=== PATIENT | female | born 1975 | race Caucasian/White ===

== ENCOUNTER 2016-11-11 10:25 | Day surgery (SDC) | payer BC ==
[2016-11-08 13:31] VITALS: BMI 27.4
--- NOTE | 2016-11-11 08:03 | P.GSHP ---
History of Present Illness H&P Date: 11/11/16 Chief Complaint: Right upper quadrant pain This is a 32-year-old female who presents today for laparoscopic cholecystectomy. She's had complaints of right quadrant pain. She is found have evidence of cholelithiasis. - Constitutional Constitutional: Reports as per HPI Past Medical History Past Medical History: No Reported History History of Any Multi-Drug Resistant Organisms: None Reported Past Surgical History: Orthopedic Surgery Additional Past Surgical History / Comment(s): Broke right leg, has titanium caitlyn and 3 screws in it. Past Anesthesia/Blood Transfusion Reactions: No Reported Reaction Past Psychological History: No Psychological Hx Reported Smoking Status: Current every day smoker Past Alcohol Use History: Occasional Additional Past Alcohol Use History / Comment(s): Has been smoking 1 PPD for last 15 yrs. Past Drug Use History: None Reported - Past Family History Mother Family Medical History: No Reported History Medications and Allergies Home Medications Medication Instructions Recorded Confirmed Type No Known Home Medications [No 08/09/15 11/08/16 History Known Home Medications] Allergies Allergy/AdvReac Type Severity Reaction Status Date / Time No Known Allergies Allergy Verified 11/08/16 13:19 Surgical - Exam - General well developed, no distress - Eyes PERRL - ENT normal pinna - Neck no masses - Respiratory normal expansion - Cardiovascular Rhythm: regular - Abdomen Abdomen: soft, non tender Assessment and Plan Plan: Right quadrant pain Cholelithiasis Chronic cholecystectomy. We'll perform laparoscopic cholecystectomy
[~2016-11-11 10:25] MED LIST: DEXAMETHASONE SOD PHOSPHATE 10 MG/ML 1 ML VIAL IV ONE; HEPARIN SODIUM,PORCINE 5,000 UNIT/ML 1 ML VIAL SQ ONE; LACTATED RINGERS 1,000 ML IV SCH; MIDAZOLAM 2 MG/2 ML VIAL IV PRN; SCOPOLAMINE 1.5MG/72HR PATCH TRANSDERM ONE; ceFAZolin 2 GM in SODIUM CHLORIDE 0.9% 100 ML IVPB ONE
[2016-11-11 10:48] VITALS: RESP 16
[2016-11-11] MEDS ORDERED: LIDOCAINE 1% 20 ML VIAL (10MG/ML) FOR IV START INTRADERMA ONE (10:58)
[2016-11-11] MEDS: ONDANSETRON 4 MG/2 ML VIAL IVP ONE ×2 (11:02→13:01)
[2016-11-11] MEDS ORDERED: SUCCINYLCHOLINE CHLORIDE 100 MG/5 ML SYR IV ONE (11:31)
[2016-11-11] MEDS ORDERED: DEXAMETHASONE SOD PHOS (MDV) 100 MG/10 ML VIAL ONE (11:31)
[2016-11-11] MEDS ORDERED: fentaNYL (PF) 50 MCG/ML 2 ML AMP ONE (11:31)
[2016-11-11] MEDS ORDERED: PROPOFOL 10 MG/ML 20 ML VIAL IV ONE (11:31)
[2016-11-11] MEDS ORDERED: MIDAZOLAM 2 MG/2 ML VIAL ONE (11:31)
[2016-11-11] MEDS ORDERED: ROCURONIUM BROMIDE 10 MG/ML 10 ML VIAL IV ONE (11:31)
[2016-11-11] MEDS ORDERED: NEOSTIGMINE 1 MG/ML 10 ML VIAL ONE (11:31)
[2016-11-11] MEDS ORDERED: GLYCOPYRROLATE 0.2 MG/ML 2 ML VIAL ONE (11:31)
[2016-11-11] MEDS ORDERED: LIDOCAINE 1% INJ 10MG/ML (20 ML MDV) ONE (11:31)
[2016-11-11] MEDS ORDERED: BUPIVACAIN-EPI 0.25%-1:200,000 30 ML VIAL IJ ONE (11:41)
--- NOTE | 2016-11-11 12:34 | P.OP ---
Date of Procedure: 11/11/16 Preoperative Diagnosis: Cholecystitis Cholelithiasis Postoperative Diagnosis: Cholelithiasis Acute and chronic cholecystitis Procedure(s) Performed: Laparoscopic cholecystectomy Anesthesia: IBETH Surgeon: Mansoor Dill Estimated Blood Loss (ml): 5 Pathology: other (Gallbladder) Condition: stable Disposition: PACU Description of Procedure: The patient was placed on the operating table. The patient received a general endotracheal tube anesthesia. The patients abdomen was prepped and draped in the usual sterile fashion. Through an infraumbilical stab incision, the fascia of the anterior abdominal wall was grasped with a pair of Kochers and then the Veress needle was placed in the peritoneal cavity. Position of the Veress needle was confirmed with positive drop test. The abdomen was then insufflated. After adequate insufflation, the 10 mm trocar was placed in the peritoneal cavity. Following this the laparoscope was placed in the peritoneal cavity. The patient was placed in the head-up, right side up position and then a 5 mm trocar was placed in the right lateral and right subcostal position under direct visualization. A 8 mm trocar was placed in the epigastric position. The gallbladder was grasped in the fundus and infundibulum. Traction on the gallbladder was placed in the lateral and the cephalad positions. The gallbladder appeared to be chronically inflamed. There were stones seen within the gallbladder. The triangle of Calot was visualized.. The cystic duct was bluntly dissected until the union of the cystic duct and common bile duct was seen. The cystic duct was then divided and sealed with the Harmonic scissors. A PDS Endoloop was then placed throughout the cystic duct stump. The cystic artery divided and sealed with the Harmonic scissors. The gallbladder was then removed from the liver bed using Harmonic scissors. The gallbladder was then extracted through the epigastric port site. Operative field was checked for any bleeding spots and Harmonic scissors was used to coagulate the liver bed. The abdomen was irrigated. The trocars were removed. The skin was closed using interrupted 3- 0 Vicryl suture. Dermabond dressing were applied. The patient tolerated the procedure well.
[2016-11-11 12:40] VITALS: TEMP 97
[2016-11-11] MEDS ORDERED: KETOROLAC 30 MG/ML 1 ML VIAL IVP ONE (12:49)
[2016-11-11] MEDS: HYDROmorphone 1 MG/ML 1 ML SYRINGE IVP PRN ×2 (13:01→13:07)
[2016-11-11 15:01] VITALS: BP 141/85; PULSE 95
== END 2016-11-11 14:58 | disposition home or self-care (01) ==
LOC: OR 10:25
PROVIDERS: ATTEND Surgery
DX: K80.10 Calculus of gallbladder with chronic cholecystitis without obstruction (principal); F17.200 Nicotine dependence, unspecified, uncomplicated
CPT/HCPCS: 81025; 88304; 47562; J2250; J1644; J1100 ×2; J2710; J0690; J2405; J2001; J3010; J1885; J1170; J0330; J2704

== ENCOUNTER 2016-11-16 19:07 | Emergency (ER) | payer BC ==
[2016-11-16 19:12] VITALS: RESP 18
--- NOTE | 2016-11-16 19:27 | ED ---
General Adult HPI - General Chief complaint: Abdominal Pain Stated complaint: Abd Pain - Post Op 5 days Time Seen by Provider: 11/16/16 19:13 Source: patient, RN notes reviewed Mode of arrival: ambulatory Limitations: no limitations - History of Present Illness Initial comments: This is a 41-year-old female is postoperative day 5 from laparoscopic cholecystectomy. Patient states she was not having any pain until today around 1 PM. Patient states she took omeprazole and a Poyen but the pain did not subside. Patient states that the pain is steadt and that is worse when she sits up. Patient states laying flat helps the pain. Patient states the pain is also in her back. Patient denies any dysuria, hematuria, hematochezia. Patient denies any shortness of breath. Patient states she's been having normal bowel movements and her last bowel movement was this morning. Patient denies any fever/chills, nausea/vomiting or diarrhea. Patient denies any recent fever, chills, shortness breath, chest pain, back pain, numbness, tingling, hematuria, headache, or visual changes, or any other complaints. - Related Data Home Medications Medication Instructions Recorded Confirmed HYDROcodone/APAP 7.5-325MG [Poyen 1 tab PO Q4H PRN 11/16/16 11/16/16 7.5] Omeprazole 40 mg PO DAILY 11/16/16 11/16/16 Allergies Allergy/AdvReac Type Severity Reaction Status Date / Time No Known Allergies Allergy Verified 11/16/16 19:32 Review of Systems ROS Statement: Those systems with pertinent positive or pertinent negative responses have been documented in the HPI. ROS Other: All systems not noted in ROS Statement are negative. Past Medical History Past Medical History: No Reported History History of Any Multi-Drug Resistant Organisms: None Reported Past Surgical History: Cholecystectomy, Orthopedic Surgery Additional Past Surgical History / Comment(s): Broke right leg, has titanium caitlyn and 3 screws in it. Past Anesthesia/Blood Transfusion Reactions: No Reported Reaction Past Psychological History: No Psychological Hx Reported Smoking Status: Current every day smoker Past Alcohol Use History: Occasional Additional Past Alcohol Use History / Comment(s): Has been smoking 1 PPD for last 15 yrs. Past Drug Use History: None Reported - Past Family History Mother Family Medical History: No Reported History General Exam - General Exam Comments Initial Comments: General: The patient is awake and alert, in no distress, and does not appear acutely ill. Eye: Pupils are equal, round and reactive to light, extra-ocular movements are intact. No nystagmus. There is normal conjunctiva bilaterally. No signs of icterus. Ears: TMs pink and pearly with intact cone of light bilaterally. Normal external ear canals Nose: Nasal turbinates pink and moist Mouth and throat: There are moist mucous membranes and no oral lesions. Neck: The neck is supple, there is no tenderness or JVD. Cardiovascular: There is a regular rate and rhythm. No murmur, rub or gallop is appreciated. Respiratory: Lungs are clear to auscultation, respirations are non-labored, breath sounds are equal. No wheezes, stridor, rales, or rhonchi. Gastrointestinal: Patient has generalized tenderness to the epigastric area of the abdomen. No guarding or rebound tenderness. There are 4 healing incisions to the umbilicus and right upper abdomen from a laparoscopic cholecystectomy. No signs of infection and incisions are clean and dry and intact. Soft, non- distended, non-tender abdomen without masses or organomegaly noted. No CVA tenderness. Bowel sounds are unremarkable. Musculoskeletal: Normal ROM, no tenderness. Strength 5/5. Sensation intact. Pulses equal bilaterally 2+. Neurological: A&O x 3. CN II-XII intact, There are no obvious motor or sensory deficits. Coordination appears grossly intact. Speech is normal. Skin: 4 healing incisions that are clean dry and intact to the abdomen for laparoscopic cholecystectomy. Skin is warm and dry and no rashes are noted. Psychiatric: Cooperative, appropriate mood & affect, normal judgment. Limitations: no limitations Course Vital Signs 11/16/16 11/16/16 11/16/16 19:09 20:28 21:12 Temperature 97.5 F L 98.0 F Pulse Rate 105 H 78 92 Respiratory 18 18 18 Rate Blood Pressure 174/79 147/74 164/92 O2 Sat by Pulse 99 100 99 Oximetry 11/16/16 22:44 Temperature 97.6 F Pulse Rate 75 Respiratory 18 Rate Blood Pressure 152/84 O2 Sat by Pulse 98 Oximetry Medical Decision Making - Medical Decision Making This is a 41-year-old female who is postop day 5 from a lap lake. On physical exam patient is well-appearing and afebrile in the EC. Patient has generalized tenderness to the epigastric area of the abdomen. No guarding or rebound tenderness. There are 4 healing incisions to the umbilicus and right upper abdomen from a laparoscopic cholecystectomy. No signs of infection and incisions are clean and dry and intact. Soft, non-distended, non-tender abdomen without masses or organomegaly noted. No CVA tenderness. Bowel sounds are unremarkable. Basic labs were drawn and reviewed. UA was done. Some blood was noted in the urine and patient states she just finished her menstrual cycle. A KUB was done and reviewed showing: Focal atelectasis at the lung bases. Nonacute abdomen. Report by Dr. Crouch. At this time a CT of the abdomen and pelvis with oral and IV contrast was done and reviewed showing: Colonic diverticulosis without sign of diverticulitis. Patchy atelectasis at the posterior lung bases. Report by Dr. Crouch. I discussed the results with patient. I discussed continuation of her home pain medications. Patient states she has a follow-up appointment with her surgeon tomorrow. I discussed return parameters. Discussed that patient should follow up with PCP in one to 2 days or return to the EC for any worsening symptoms or for any further concerns. Patient was receptive to this plan and patient will be discharged home. I discussed this case with attending physician Dr. Renee who agrees the plan as stated above. - Lab Data Result diagrams: 11/16/16 19:45 11/16/16 19:45 Lab Results 11/16/16 11/16/16 11/16/16 Range/Units 19:45 19:45 19:45 WBC 6.8 (3.8-10.6) k/uL RBC 4.55 (3.80-5.40) m/uL Hgb 14.8 (11.4-16.0) gm/dL Hct 43.2 (34.0-46.0) % MCV 95.0 (80.0-100.0) fL MCH 32.5 (25.0-35.0) pg MCHC 34.2 (31.0-37.0) g/dL RDW 12.5 (11.5-15.5) % Plt Count 227 (150-450) k/uL Neutrophils % 61 % Lymphocytes % 27 % Monocytes % 4 % Eosinophils % 4 % Basophils % 0 % Neutrophils # 4.2 (1.3-7.7) k/uL Lymphocytes # 1.9 (1.0-4.8) k/uL Monocytes # 0.3 (0-1.0) k/uL Eosinophils # 0.3 (0-0.7) k/uL Basophils # 0.0 (0-0.2) k/uL Sodium 140 (137-145) mmol/L Potassium 3.9 (3.5-5.1) mmol/L Chloride 106 (98-107) mmol/L Carbon Dioxide 23 (22-30) mmol/L Anion Gap 11 mmol/L BUN 11 (7-17) mg/dL Creatinine 0.62 (0.52-1.04) mg/dL Est GFR (MDRD) Af Amer >60 (>60 ml/min/1.73 sqM) Est GFR (MDRD) Non-Af >60 (>60 ml/min/1.73 sqM) Glucose 100 H (74-99) mg/dL Plasma Lactic Acid Dereje 1.1 (0.7-2.0) mmol/L Calcium 9.6 (8.4-10.2) mg/dL Total Bilirubin 1.0 (0.2-1.3) mg/dL AST 322 H (14-36) U/L ALT 171 H (9-52) U/L Alkaline Phosphatase 184 H (38-126) U/L Total Protein 7.4 (6.3-8.2) g/dL Albumin 4.3 (3.5-5.0) g/dL Amylase 40 (30-110) U/L Lipase 125 (23-300) U/L Urine Color Urine Appearance (Clear) Urine pH (5.0-8.0) Ur Specific [place] (1.001-1.035) Urine Protein (Negative) Urine Glucose (UA) (Negative) Urine Ketones (Negative) Urine Blood (Negative) Urine Nitrite (Negative) Urine Bilirubin (Negative) Urine Urobilinogen (<2.0) mg/dL Ur Leukocyte Esterase (Negative) Urine RBC (0-5) /hpf Urine WBC (0-5) /hpf Ur Squamous Epith Cells (0-4) /hpf Urine Mucus (None) /hpf 11/16/16 Range/Units 19:45 WBC (3.8-10.6) k/uL RBC (3.80-5.40) m/uL Hgb (11.4-16.0) gm/dL Hct (34.0-46.0) % MCV (80.0-100.0) fL MCH (25.0-35.0) pg MCHC (31.0-37.0) g/dL RDW (11.5-15.5) % Plt Count (150-450) k/uL Neutrophils % % Lymphocytes % % Monocytes % % Eosinophils % % Basophils % % Neutrophils # (1.3-7.7) k/uL Lymphocytes # (1.0-4.8) k/uL Monocytes # (0-1.0) k/uL Eosinophils # (0-0.7) k/uL Basophils # (0-0.2) k/uL Sodium (137-145) mmol/L Potassium (3.5-5.1) mmol/L Chloride (98-107) mmol/L Carbon Dioxide (22-30) mmol/L Anion Gap mmol/L BUN (7-17) mg/dL Creatinine (0.52-1.04) mg/dL Est GFR (MDRD) Af Amer (>60 ml/min/1.73 sqM) Est GFR (MDRD) Non-Af (>60 ml/min/1.73 sqM) Glucose (74-99) mg/dL Plasma Lactic Acid Dereje (0.7-2.0) mmol/L Calcium (8.4-10.2) mg/dL Total Bilirubin (0.2-1.3) mg/dL AST (14-36) U/L ALT (9-52) U/L Alkaline Phosphatase (38-126) U/L Total Protein (6.3-8.2) g/dL Albumin (3.5-5.0) g/dL Amylase (30-110) U/L Lipase (23-300) U/L Urine Color Yellow Urine Appearance Cloudy H (Clear) Urine pH 6.5 (5.0-8.0) Ur Specific [place] 1.019 (1.001-1.035) Urine Protein Negative (Negative) Urine Glucose (UA) Negative (Negative) Urine Ketones Negative (Negative) Urine Blood Moderate H (Negative) Urine Nitrite Negative (Negative) Urine Bilirubin Negative (Negative) Urine Urobilinogen 4.0 (<2.0) mg/dL Ur Leukocyte Esterase Trace H (Negative) Urine RBC 28 H (0-5) /hpf Urine WBC 2 (0-5) /hpf Ur Squamous Epith Cells 7 H (0-4) /hpf Urine Mucus Rare H (None) /hpf Disposition Clinical Impression: History of laparoscopic cholecystectomy, Epigastric pain Disposition: HOME SELF-CARE Condition: Good Instructions: Epigastric Pain (ED) Additional Instructions: Please continue your pain medications. Please continue your follow-up with her surgeon tomorrow. Please follow-up with family doctor in the next 2 days of symptoms have not improved. Please return to emergency room if the symptoms increase or worsen or for any other concerns. Referrals: None,Stated [Primary Care Provider] - 1-2 days Time of Disposition: 22:38
[2016-11-16] MEDS ORDERED: RX INFO: IV CONTRAST WAS GIVEN 1 EACH MISC MISCELLANE PRN (19:55)
[2016-11-16] MEDS ORDERED: IOHEXOL 350 MG/ML 25 ML BOTTLE (ORAL USE) PO PRN (19:55)
[2016-11-16 20:03] LABS: Appearance,Urine Cloudy (Clear); Basophils % (A) 0 %; Bilirubin,Urine Negative (Negative); CH 32.8; CHCM 34.7; Eosinophils # (A) 0.3 k/uL (0-0.7); Eosinophils % (A) 4 %; Glucose,Urine (UA) Negative (Negative); HCT 43.2 % (34.0-46.0); HDW 2.53; HGB 14.8 gm/dL (11.4-16.0); Ketones,Urine Negative (Negative); Leukocyte Esterase,Urine Trace (Negative); Luc # (Auto) 0.17; Luc % (Auto) 3; Lymphocytes # (A) 1.9 k/uL (1.0-4.8); Lymphocytes % (A) 27 %; MCH 32.5 pg (25.0-35.0); MCHC 34.2 g/dL (31.0-37.0); Mean Platelet Volume 6.8; Monocytes # (A) 0.3 k/uL (0-1.0); Monocytes % (A) 4 %; Mucus,Urine Rare /hpf; Neutrophils # (A) 4.2 k/uL (1.3-7.7); Neutrophils % (A) 61 %; Nitrite,Urine Negative (Negative); PH, Urine 6.5 (5.0-8.0); Particle Count 2513; Protein,Urine Negative (Negative); RBC 4.55 m/uL (3.80-5.40); RBC,Urine 28 /hpf (0-5); RDW 12.5 % (11.5-15.5); Specific Gravity,Urine 1.019 (1.001-1.035); Squamous Epithelial Cell,Urine 7 /hpf (0-4); UA Billing (MACRO vs. MICRO) MICRO; WBC 6.8 k/uL (3.8-10.6); WBC (Perox) 6.51; WBC,Urine 2 /hpf (0-5)
--- NOTE | 2016-11-16 20:03 | XR ---
EXAMINATION TYPE: XR KUB DATE OF EXAM: 11/16/2016 7:56 PM COMPARISON: NONE HISTORY: Right upper quadrant pain TECHNIQUE: 2 views FINDINGS: There are clips from cholecystectomy. Bowel gas pattern is normal. There is no sign of inte stinal obstruction or pneumoperitoneum. Fecal pattern is normal. There is no evidence of a mass. Ther e is mild subsegmental atelectasis at the lung bases. IMPRESSION: Focal atelectasis at the lung bases. Nonacute abdomen.
[2016-11-16] MEDS ORDERED: SODIUM CHLORIDE 0.9% 500 ML IV ONE (20:07)
[2016-11-16 20:14] LABS: ALT 171 U/L (9-52); AST 322 U/L (14-36); Alkaline Phosphatase 184 U/L (38-126); Amylase 40 U/L (30-110); Anion Gap 11 mmol/L; Blood Urea Nitrogen 11 mg/dL (7-17); Calcium 9.6 mg/dL (8.4-10.2); Carbon Dioxide 23 mmol/L (22-30); Chloride 106 mmol/L (98-107); Glucose 100 mg/dL (74-99); Non-African American GFR(MDRD) >60 (>60 ml/min/1.73 sqM); Potassium 3.9 mmol/L (3.5-5.1); Sodium 140 mmol/L (137-145); Total Protein 7.4 g/dL (6.3-8.2)
--- NOTE | 2016-11-16 22:00 | CT ---
EXAMINATION TYPE: CT abdomen pelvis w con DATE OF EXAM: 11/16/2016 9:53 PM COMPARISON: NONE HISTORY: Upper Abd pain. Post OP Shanelle CT DLP: 1250 mGycm Automated exposure control for dose reduction was used. TECHNIQUE: Helical acquisition of images was performed from the lung bases through the pelvis. CONTRAST: Performed with Oral Contrast and with IV Contrast, patient injected with 100 mL of Omnipaque 300. FINDINGS: There is patchy linear density at the posterior lung bases consistent with atelectasis. There is no p leural effusion. Liver spleen pancreas appear normal. There are clips from cholecystectomy. Bile ducts are not dilated . There is no adrenal mass. Kidneys show satisfactory contrast opacification. There is no hydronephrosi s. There is no retroperitoneal adenopathy. There is no ascites. Terminal ileum appears normal. Append ix is not seen. There is no sign of appendicitis. I see no intestinal wall thickening. Bladder disten ds smoothly. There is no sign of a pelvic mass. Uterus is anteverted. Bony structures are intact. The re are some colonic diverticula. There is no evidence of diverticulitis. IMPRESSION: COLONIC DIVERTICULOSIS WITHOUT SIGN OF DIVERTICULITIS. PATCHY ATELECTASIS AT THE POSTERIOR LUNG BASES .
[2016-11-16 22:46] VITALS: BP 152/84; PULSE 75; TEMP 97.6
== END 2016-11-16 22:51 | disposition home or self-care (01) ==
LOC: EC 19:07
DX: R10.13 Epigastric pain (principal); M54.9 Dorsalgia, unspecified; F17.200 Nicotine dependence, unspecified, uncomplicated; Z79.899 Other long term (current) drug therapy; Z90.49 Acquired absence of other specified parts of digestive tract
CPT/HCPCS: 36415; 80053; 82150; 83605; 83690; 85025; 81001; 87040; 87086; 74000; 74177; 99284; 96360; Q9967